=== PATIENT | female | born 1940 | race Asian ===

== ENCOUNTER 2016-09-14 11:58 | Emergency (ER) | payer MEDICARE ==
[~2016-09-14] VITALS: Ht 160 cm; Wt 56.7 kg
[2016-09-14] MEDS ORDERED: Morphine Sulfate 4mg/ml Inj IVP ONE (12:30)
--- NOTE | 2016-09-14 13:03 | Emergency Room Report ---
History of Present Illness General Chief Complaint: Dizziness Source: Patient, Medical Record Present Illness HPI Patient presents with complaints of severe dizziness Patient reports that last night she was eating and felt that a food bolus was lodged in the mid esophageal area Through the night she vomited several times and still feels that there is some discomfort in the mid chest area patient also reports headache However reports that she has had multiple episodes of headaches has had previous workup including MRI and neurology consultation Allergies: Coded Allergies: ALUMINUM HYDROXIDE (Verified Allergy, Severe, rash, 07/27/13) ASPIRIN (Verified Allergy, Severe, rash, 07/27/13) CALCIUM CARBONATE (Verified Allergy, Severe, rash, 07/27/13) MAGNESIUM (Verified Allergy, Severe, rash, 07/27/13) Patient History Past Medical History: see triage record Pertinent Family History: none Reviewed Nursing Documentation: PMH: Agreed, PSxH: Agreed Nursing Documentation-PMH Past Medical History: No History, Except For Hx Hypertension: Yes Review of Systems All Other Systems: negative except mentioned in HPI Physical Exam Vital Signs Date Time Temp Pulse Resp B/P Pulse Ox O2 Delivery O2 Flow Rate FiO2 09/14/16 12:15 98.1 65 17 143/73 98 Room Air Sp02 EP Interpretation: reviewed, normal General Appearance: well appearing, no apparent distress Head: normocephalic, atraumatic Eyes: bilateral eye EOMI, bilateral eye PERRL ENT: hearing grossly normal, normal pharynx, TMs + canals normal, uvula midline Neck: full range of motion, supple, no meningismus, no bony tend Respiratory: lungs clear, normal breath sounds, no rhonchi, no respiratory distress, no retraction, no accessory muscle use Cardiovascular #1: normal peripheral pulses, regular rate, rhythm, no edema, no gallop, no JVD, no murmur Gastrointestinal: normal bowel sounds, non tender, soft, no mass, no organomegaly, non-distended, no guarding, no hernia, no pulsatile mass, no rebound Genitourinary: no CVA tenderness Musculoskeletal: normal inspection Neurologic: oriented x3, responsive, surgical rn III-XII nml as tested, motor strength/ tone normal, sensory intact Psychiatric: mood/affect normal Skin: normal color, no rash, warm/dry, palpation normal Lymphatic: normal inspection, no adenopathy Medical Decision Making Diagnostic Impression: Primary Impression: ACS (acute coronary syndrome) Additional Impressions: Headache Dizziness ER Course Patient is a fairly complex patient with multiple differential to consideration including but not limited to cardiac cardiopulmonary and vascular emergencies Given the patient's initial presentation blood work and imaging study was initiated CT head did not show any acute disease patient's blood works at baseline levels at this time patient was stable for admission for further inpatient care I spoke the transferring physician at [place] However at this time the patient states that she feel significantly better and does not want to stay in the hospital patient was described the risks and benefits of leaving with possible worsening symptomatology and possible she is awake alert and refusing any further inpatient care Labs Test 09/14/16 12:41 09/14/16 14:30 White Blood Count 7.1 K/UL (4.8-10.8) Red Blood Count 4.42 M/UL (4.20-5.40) Hemoglobin 13.8 G/DL (12.0-16.0) Hematocrit 42.6 % (37.0-47.0) Mean Corpuscular Volume 96 FL (80-99) Mean Corpuscular Hemoglobin 31.3 PG (27.0-31.0) Mean Corpuscular Hemoglobin Concent 32.5 G/DL (32.0-36.0) Red Cell Distribution Width 11.7 % (11.6-14.8) Platelet Count 172 K/UL (150-450) Mean Platelet Volume 10.0 FL (6.5-10.1) Neutrophils (%) (Auto) 65.1 % (45.0-75.0) Lymphocytes (%) (Auto) 26.5 % (20.0-45.0) Monocytes (%) (Auto) 6.9 % (1.0-10.0) Eosinophils (%) (Auto) 0.5 % (0.0-3.0) Basophils (%) (Auto) 1.1 % (0.0-2.0) Prothrombin Time 10.5 SEC (9.30-11.50) Prothromb Time International Ratio 1.0 (0.9-1.1) Activated Partial Thromboplast Time 25 SEC (23-33) Sodium Level 137 mEQ/L (135-145) Potassium Level 3.7 mEQ/L (3.4-4.9) Chloride Level 96 mEQ/L (98-107) Carbon Dioxide Level 27 mEQ/L (20-30) Anion Gap 14 (5-15) Blood Urea Nitrogen 15 mg/dL (7-23) Creatinine 0.7 mg/dL (0.5-0.9) Estimat Glomerular Filtration Rate mL/min (>60) Glucose Level 209 mg/dL (74-106) Calcium Level 9.0 mg/dL (8.6-10.2) Total Bilirubin 0.6 mg/dL (0.0-1.2) Aspartate Amino Transf (AST/SGOT) 15 U/L (5-40) Alanine Aminotransferase (ALT/SGPT) 11 U/L (3-33) Alkaline Phosphatase 92 U/L (35-104) Total Creatine Kinase 76 U/L (26-140) Creatine Kinase MB 2.1 ng/mL (< 3.8) Creatine Kinase MB Relative Index 2.7 Troponin I < 0.30 ng/mL (<=0.30) Total Protein 7.1 g/dL (6.6-8.7) Albumin 4.2 g/dL (3.5-5.2) Globulin 2.9 g/dL Albumin/Globulin Ratio 1.4 (1.0-2.7) Lipase 33 U/L (< 60) Urine Color Pale yellow Urine Appearance Clear Urine pH 7 (4.5-8.0) Urine Specific [place] 1.010 (1.005-1.035) Urine Protein Negative (NEGATIVE) Urine Glucose (UA) 3+ (NEGATIVE) Urine Ketones 1+ (NEGATIVE) Urine Occult Blood 1+ (NEGATIVE) Urine Nitrite Negative (NEGATIVE) Urine Bilirubin Negative (NEGATIVE) Urine Urobilinogen Normal MG/DL (0.0-1.0) Urine Leukocyte Esterase 2+ (NEGATIVE) Urine RBC 2-4 /HPF (0 - 2) Urine WBC 5-10 /HPF (0 - 2) Urine Squamous Epithelial Cells Few /LPF (NONE/OCC) Urine Bacteria Few /HPF (NONE) Urine Mucus Few /LPF (NONE/OCC) Rhythm Strip Diag. Results EP Interpretation: yes Rate: 67 Rhythm: NSR, no PVC's, no ectopy Chest X-Ray Diagnostic Results EP Interpretation: Yes Findings: no consolidation, no effusion, no pneumothorax Number of Views: 1 CT/MRI/US Diagnostic Results CT/MRI/US Diagnostic Results : Impression CT head no acute disease Last Vital Signs Date Time Temp Pulse Resp B/P Pulse Ox O2 Delivery O2 Flow Rate FiO2 09/14/16 12:15 98.1 65 17 143/73 98 Room Air Status: improved Disposition: AGAINST MEDICAL ADVICE Condition: Serious JUAN PENG D.O. Sep 14, 2016 13:03
[2016-09-14 13:04] VITALS: BP 145/70
[2016-09-14 13:04] LABS: BASOPHILS % (AUTO) 1.1 % (0.0-2.0); EOSINOPHILS % (AUTO) 0.5 % (0.0-3.0); LYMPHOCYTES % (AUTO) 26.5 % (20.0-45.0); MEAN CORPUSCULAR HEMOGLOBIN 31.3 PG (27.0-31.0); MEAN CORPUSCULAR HGB CONC 32.5 G/DL (32.0-36.0); MEAN CORPUSCULAR VOLUME 96 FL (80-99); MONOCYTES % (AUTO) 6.9 % (1.0-10.0); NEUTROPHILS % (AUTO) 65.1 % (45.0-75.0); PLATELET COUNT 172 K/UL (150-450); RED BLOOD COUNT 4.42 M/UL (4.20-5.40); RED CELL DISTRIBUTION WIDTH 11.7 % (11.6-14.8); WHITE BLOOD COUNT 7.1 K/UL (4.8-10.8)
[2016-09-14 13:22] LABS: PROTHROMBIN TIME 10.5 SEC (9.30-11.50)
[2016-09-14 13:25] LABS: ALANINE AMINOTRANSFERASE 11 U/L (3-33); ALBUMIN/GLOBULIN RATIO 1.4 (1.0-2.7); ANION GAP 14 (5-15); ASPARTATE AMINO TRANSFERASE 15 U/L (5-40); CARBON DIOXIDE 27 mEQ/L (20-30); CHLORIDE 96 mEQ/L (98-107); CREATININE 0.7 mg/dL (0.5-0.9); HEMOLYSIS 11; LIPASE 33 U/L (< 60); POTASSIUM 3.7 mEQ/L (3.4-4.9); SODIUM 137 mEQ/L (135-145); TOTAL PROTEIN 7.1 g/dL (6.6-8.7); TROPONIN I < 0.30 ng/mL (<=0.30)
[2016-09-14 13:35] LABS: CKMB 2.1 ng/mL (< 3.8)
--- NOTE | 2016-09-14 14:07 | Diagnostic Imaging Report ---
Indications: Dizziness and vertigo Technique: Spiral acquisitions obtained through the brain. Angled axial and coronal 5 x 5 mm slices were reconstructed. Total dose length product 1432 mGycm. 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 While not acute, several of these are new since previous 2010 exam. There is mild age-related enlargement of ventricles and extra axial CSF spaces, minimal periventricular deep white matter chronic ischemic change. There is some encephalomalacia of the postero-medial inferior right cerebellar hemisphere, not evident previously but not acute. No acute intracranial bleed or mass effect. No edema. The calvarium is intact. 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
[2016-09-14 14:39] LABS: APPEARANCE,URINE CLEAR; KETONES,URINE 1+ (NEGATIVE); LEUKOCYTE ESTERASE ,URINE 2+ (NEGATIVE); NITRITE,URINE NEGATIVE (NEGATIVE); PH,URINE 7 (4.5-8.0); PROTEIN,URINE NEGATIVE (NEGATIVE); UROBILINOGEN,URINE NORMAL MG/DL (0.0-1.0)
[2016-09-14 14:50] LABS: BACTERIA,URINE FEW /HPF; MUCUS,URINE FEW /LPF (NONE/OCC); SQUAMOUS EPITHELIAL CELL,UR FEW /LPF (NONE/OCC)
[2016-09-14 14:59] VITALS: BP_SYST 153; BP_SYST 163; BP_DIAS 77
[2016-09-14 15:08] VITALS: BP 163/77
--- NOTE | 2016-09-15 14:59 | Diagnostic Imaging Report ---
Indication: Chest pain Technique: One view of the chest Comparison: 05/08/2009 Findings: Lungs and pleural spaces are clear. Heart size is normal . Aorta is tortuous . No significant change Impression: No acute process
== END 2016-09-14 15:08 | disposition left against medical advice (07) ==
LOC: EMR 13:08
DX: I24.9 Acute ischemic heart disease, unspecified (principal); R51 Headache; R42 Dizziness and giddiness; I10 Essential (primary) hypertension; Z88.6 Allergy status to analgesic agent; Z88.8 Allergy status to other drugs, medicaments and biological substances
CPT/HCPCS: 36415; 70450; 71010; 80053; 81003; 82550; 82553; 83690; 84484; 85025; 85610; 85730; 93005; 96360; 96374; 96375; 99284; J2270; J2405; J7040